=== PATIENT | female | born 1965 | race Caucasian/White ===

== ENCOUNTER → 2018-05-22 | Outpatient (CLI) | payer OTHER ==
[~2018-05-22] MED LIST: AMBEREN; ASACOL HD800 MG PO; ASACOL400 MG; BENTYL20 MG; CALCIUM; CALCIUM 600 +1 EAC5 PO; CARAFATE 1 GM TA1 G1; DIFLUCAN; MULTIVITAMINS PO; PHENERGAN25 M2; PROTONIX40 M2; VANCOCIN 125 M125 MG; VITAMIN D1000 UNI1 PO; VITAMIN D400 UNI1; ZOFRAN ODT4 MG PO
== END ==
LOC: M.ULTRA 14:06
DX: R10.9 Unspecified abdominal pain (principal); Z88.0 Allergy status to penicillin

== ENCOUNTER → 2020-07-24 | Outpatient (CLI) | payer OTHER | LOC: M.RAD 07:27 | PROVIDERS: ATTEND Nurse Practitioner Family | DX: Z12.31 Encounter for screening mammogram for malignant neoplasm of breast (principal) ==

== ENCOUNTER 2021-02-25 18:28 | Inpatient (IN) | payer OTHER ==
[~2021-02-25] VITALS: Ht 167.6 cm; Wt 98.4 kg
--- NOTE | ~2021-02-25 | CON ---
[address] [address] CONSULTATION Name: BALDERASRAY S Room: [address] IN .R.#: [id number] Admission: 02/25/21 Attend Phys: John Diehl MD Discharge: Date of : 61 Report #: [id number] THIS REPORT FOR: cc: Emily Jimenes RN, Janene RN FNP Liston, Michael J. MD [facility] ~ DOC #: [id number] cc: GARETH Quan MD DATE OF CONSULTATION: 02/26/2021 CARDIOLOGY CONSULTATION INDICATION: Chest pain and non-ST elevation myocardial infarction. HISTORY OF PRESENT ILLNESS: The patient is a very pleasant 55-year-old white female with no prior cardiac history. Cardiac risk factors include family history of coronary artery disease. The patient states that yesterday at approximately 5:30 p.m., she had an episode of dizziness, lightheadedness, some visual changes and ultimately shortness of breath and sternal chest discomfort radiating to both elbows. She called EMS and was brought to the hospital for further evaluation. She was given sublingual nitroglycerin, nitro paste and aspirin as well as morphine, ultimately with pain relief. Her troponin on arrival was 3.94 consistent with non-ST elevation myocardial infarction. EKG showed sinus rhythm without acute ST segment elevation. The patient was placed on a heparin drip. She reports having some symptoms last Tuesday that were transient in nature. She is without other cardiac complaint at this time. Her discomfort was associated with some shortness of breath and diaphoresis, but no nausea. PAST MEDICAL HISTORY: 1. Ulcerative colitis. 2. Gastroesophageal reflux. 3. History of Clostridium difficile x 1. 4. Seizure disorder as a child. PAST SURGICAL HISTORY: Hysterectomy. FAMILY HISTORY: The patient's father had bypass in his 50s. The patient's mother had atrial fibrillation. SOCIAL HISTORY: The patient is . She does not smoke. [place] [address] CONSULTATION Name: RAY BALDERAS Room: [address] IN [facility]#: [id number] Admission: 02/25/21 Attend Phys: John Diehl MD Discharge: Date of : 61 Report #: [id number] ALLERGIES: PENICILLIN, NEOSPORIN, SULFA, CLINDAMYCIN. HOME MEDICATIONS: Mesalamine, vitamin D3, multivitamin, calcium with D supplement, Pepcid and Prozac. REVIEW OF SYSTEMS: A 14-point review of systems positive for seizures as a 11-year-old, cough productive of sputum a few weeks ago secondary to allergies, palpitations, chest discomfort and shortness of breath as outlined above. She had some near syncope with her onset of chest pain yesterday. She reports blood in her stool from her ulcerative colitis. She had jaundice as an infant. She had anemia as a teenager. She reports colon polyps without history of cancer. She reports seasonal allergies and medical allergies as outlined above. She is allergic to adhesives. She denies contrast allergy. She has some anxiety, but no depression. She reports arthritis in her hands. She reports that she wears glasses without acute visual change. Otherwise, 14-point review of systems was unremarkable. PHYSICAL EXAMINATION: VITAL SIGNS: Stable. Blood pressure 106/62, pulse is 85 and regular. GENERAL: This is a pleasant lady in no distress. Mood and affect appropriate. HEENT: Extraocular muscles intact. Mucous membranes are moist. NECK: Examination of the neck shows no jugular venous distention. No carotid bruits. CHEST: Examination of the chest reveals clear lung reddy without wheezes, rales or rhonchi. CARDIOVASCULAR: Reveals a regular rhythm. Normal S1 and S2. I do not appreciate gallop or murmur. ABDOMEN: Examination of the abdomen reveals normal bowel sounds. The abdomen is soft and nontender. EXTREMITIES: Examination of the extremities shows no edema. Peripheral pulses are 2+ and easily palpable. SKIN: Dry. IMAGING: A 12-lead EKG shows sinus rhythm with low voltage anteriorly without acute ST segment abnormality. LABORATORY DATA: Reviewed. Electrolytes within normal limits. BUN 14, creatinine 0.9, serum glucose 103. Troponin on arrival 3.94. NT-proBNP 2583, white blood cell count 9.7, hemoglobin 13.0, platelet count 282,000. IMPRESSION AND RECOMMENDATION: 1. Non-ST elevation myocardial infarction. The patient has been placed on a heparin drip. We will proceed with coronary angiography. Further intervention pending the results of that study. Further medication adjustments pending [address] [place] [address] CONSULTATION Name: RAY BALDERAS Room: [address] IN M.R.#: [id number] Admission: 02/25/21 Attend Phys: John Diehl MD Discharge: Date of : 61 Report #: [id number] results of angiography. 2. Acute heart failure with elevated NT-proBNP. Likely diastolic in nature. Presently stable. We will treat underlying causes including ischemia. No need for diuresis at this time. 3. Possible dyslipidemia. Fasting lipid profile is pending. 4. Family history of coronary artery disease as outlined above. 5. Ulcerative colitis, presently stable. MD KAYODE FigueroaL/MAX By: 0854 09Jose Armando Joyner MD, [facility] /nt
[2021-02-25 18:28] VITALS: BP 126/82
[~2021-02-25 18:28] MED LIST changes: -ASACOL HD800 MG PO; +CALCIUM 600 +1 EA14 PO; -CALCIUM 600 +1 EAC5 PO; +DAILY VITE1 EACH PO; +LIALDA1.2 GM PO; -MULTIVITAMINS PO; -VITAMIN D1000 UNI1 PO; +VITAMIN D325 MC1 PO
[2021-02-25] MEDS ORDERED: PROZAC20 M1 PO (18:35)
[2021-02-25] MEDS ORDERED: FAMOTIDINE 10 M10 MG PO (18:35)
[2021-02-25 18:49] LABS: HEMATOCRIT 38.8 % (37.0-47.0); MCH 30.2 pg (26.0-34.0); MCHC 33.4 g/dL (28.0-37.0); MCV 90.5 fL (80.0-100.0); MPV 8.4 fl. (7.2-11.1); NUCLEATED RBCS 0 /100WBC; PLATELET COUNT* 282 thou/uL (150-400); RBC 4.29 mil/uL (4.20-5.00); RDW-CV 14.2 % (10.5-14.5); WBC 9.7 thou/uL (4.0-11.0)
[2021-02-25 18:55] LABS: CALCIUM 9.4 mg/dL (8.5-10.1); CREATININE 0.9 mg/dL (0.6-1.3); POTASSIUM 3.6 mmol/L (3.5-5.1)
[2021-02-25 19:09] LABS: APTT 25.4 Seconds (25.0-31.3); PROTIME 10.4 Seconds (9.20-11.50)
[2021-02-25 19:10] LABS: ALBUMIN 3.6 g/dL (3.4-5.0); MAGNESIUM 2.2 mg/dL (1.8-2.4); TOTAL BILIRUBIN 0.3 mg/dL (<0.1-1.0); TOTAL PROTEIN 8.6 g/dL (6.4-8.2)
[2021-02-25 19:23] LABS: ABSOLUTE EOSINOPHILS 2.3 thou/uL (0.0-0.7); ABSOLUTE LYMPHOCYTES 2.5 thou/uL (0.8-5.3); ABSOLUTE MONOCYTES 0.9 thou/uL (0.0-1.2); ATYPICAL LYMPHS 2 %
[2021-02-25 19:24] LABS: PLATELET ESTIMATE ADEQUATE
[2021-02-25 21:31] VITALS: BP 125/83
[2021-02-26] VITALS (14 sets, daily range): BP systolic 86–114; BP diastolic 51–78
--- NOTE | 2021-02-26 06:39 | NUR ---
NO ACUTE CHANGES THROUGHOUT SHIFT. SEE CHARTING FOR DETAILS. ALL ROUNDINGS COMPLETED, ALL NEEDS MET. BED LOCKED AND IN LOW POSITION. CALL LIGHT AND PERSONAL ITEMS IN REACH. PT REPORTED CHEST PRESSURE AT APPROX 0030, MORPHINE AND ZOFRAN GIVEN PER ONE TIME ORDER IN EMAR. AT APPROX 0400 PT AGAIN REPORTED CHEST PRESSURE. TELEPHONE STERILIZER PHYSICIAN NOTIFIED, NO NEW ORDERS RECEIVED, NO CALL RECEIVED. MESSAGE RESPONSE READ: "I'VE GOT YOUR MESSAGE. THANK YOU." PT CONTINUES TO REPORT CHEST PRESSURE, REASSURANCE GIVEN AND REPORT GIVEN TO DAY NURSE TO FOLLOW UP WITH PHYSICIAN.
[2021-02-26 10:28] LABS: CHOLESTEROL 128 mg/dL (<200); HDL CHOLESTEROL 59 mg/dL (>40); LDL CHOLESTEROL 59 mg/dL (<100); SERUM ASSESSMENT Clear; TC:HDL 2.2 Ratio (Not establshd); TRIGLYCERIDE 54 mg/dL (<150); VLDL 11 mg/dL (<40)
--- NOTE | 2021-02-26 10:59 | EKG ---
[place] [address] ELECTROCARDIOGRAM REPORT Name: RAY BALDERAS Room: [address] IN .#: [id number] Admission: 02/25/21 Attend Phys: John Diehl, Discharge: Date of : 61 Date of Service: 02/25/21 183 Report #: [id number] THIS REPORT FOR: //name// [facility] ED Test Date: 2021-02-25 Test Time: 18:31:20 Pat Name: RAY BALDERAS Department: Room: [facility] Gender: F [employer]aming Mill Supervisor: IDANIA : 1965 Requested By: Berta Hudson Order Number: [id number] MD: Morris Teixeira Measurements Intervals [place] Rate: 98 P: 39 FL: 165 QRS: -10 QRSD: 73 T: 6 QT: 328 QTc: 419 Interpretive Statements Sinus tachycardia Multiple ventricular premature complexes Probable left atrial enlargement Low voltage, precordial leads Borderline T abnormalities, inferior leads Compared to ECG 09/18/2011 22:42:38 Ventricular premature complex(es) now present Low QRS voltage now present Sinus rhythm no longer present Electronically Signed On 02-26-2021 10:59:19 CDT by Morris Teixeira [email or web address] <ELECTRONICALLY SIGNED> By: Morris Teixeira MD, [facility] 02/26/21 1059 30 30 Morris Teixeira MD, [facility] /EPI
--- NOTE | 2021-02-26 11:00 | EKG ---
[place] [address] ELECTROCARDIOGRAM REPORT Name: RAY BALDERAS Room: [address] IN [facility]#: [id number] Admission: 02/25/21 Attend Phys: John Diehl, Discharge: Date of : 61 Date of Service: 02/25/211940 Report #: [id number] THIS REPORT FOR: //name// [facility] ED Test Date: 2021-02-25 Test Time: 19:41:36 Pat Name: RAY BALDERAS Department: Room: [facility] Gender: F Commodity Manager: [place] : 1965 Requested By: Monty Workman Order Number: [id number] MD: Morris Teixeira Measurements Intervals [place] Rate: 83 P: 25 [place]: 153 QRS: -15 QRSD: 72 T: -3 QT: 367 QTc: 432 Interpretive Statements Sinus rhythm Probable left atrial enlargement Borderline left axis deviation Low voltage, precordial leads Consider anterior infarct Electronically Signed On 02-26-2021 11:00:27 CDT by Morris Teixeira [email or web address] <ELECTRONICALLY SIGNED> By: Morris Teixeira MD, FACC 02/26/21 1100 40 40 Morris Teixeira MD, FAC /EPI
--- NOTE | 2021-02-26 13:32 | NUR ---
Pt is A&O. Resides at home alone. Independent. No DME. No hx of HH or SNF. Goal is home at dc. No needs anticipated. Pt having heart cath today. Anticipate dc in 1-2 days.
--- NOTE | 2021-02-26 13:40 | CARD ---
[address] [address] CARDIAC CATH REPORT Name: RAY BALDERAS Room: [address] IN [facility]#: [id number] Admission: 02/25/21 Attend Phys: John Diehl MD Discharge: Date of : 61 Report #: [id number] THIS REPORT FOR: cc: Emily Jimenes RN, Janene RN FNP Liston, Michael J. MD [facility] ~ APPROVED REPORT Study performed: 02/26/2021 11:30:54 Patient Details Patient Status: In-Patient Room #: The patient is a 55 year-old female Event Personnel Jose Armando Joyner Extruding Machine Operator, Curtis Rojas RN Billing Department Supervisor, Cuong Berry STORE PROTECTION SPECIALIST Monitor, Heidi Flores RTR Scrub Procedures Performed Art Access - R femoral artery* Left Heart Cath w/or w/o Coronaries [id number] [facility] Hemostasis w/ Mynx Indication Non-STEMI (>12 hrs to = 24 hrs) Risk Factors Family History Procedure Narrative The patient was brought electively to the Cardiac Catheterization Laboratory and was prepped and draped in a sterile manner. The right femoral was infiltrated with 2% Lidocaine subcutaneous anesthesia. A 6F sheath was inserted into the right femoral artery. Coronary angiography was performed using coronary diagnostic catheters. The right coronary system was accessed and visualized with a JR4 catheter. The left coronary system was accessed and visualized with a JL4 catheter. The left ventricle was accessed and visualized with a PIG tail catheter. Hemostasis was obtained with manual pressure following sheath removal without any complications. The patient tolerated the procedure well and there were no complications associated with the procedure. There was no hematoma. Intraoperative Conscious Sedation Sedation start time: 1148 Case end Time: [place] [address] CARDIAC CATH REPORT Name: BALDERASRAY S Room: [address] IN [facility]#: [id number] Admission: 02/25/21 Attend Phys: John Diehl MD Discharge: Date of : 61 Report #: [id number] Fentanyl 25 mcg Versed 1.0 mg Fluoro Time: 1.5 minutes Dose: DAP 26073 cGycm2 81341 75047 mGy Contrast Type and Amount: Visipaque 150 ml Coronary Angiography The patient's coronary anatomy is left dominant. Diagnostic Cath Left Main The left main coronary artery is normal and bifurcates into a left anterior descending and circumflex coronary artery. LAD The left anterior descending coronary artery is normal in its proximal mid and distal portion. The distal portion of the LAD wraps around the apex. Diagonal 1 A large branch first diagonal branch is normal. Circumflex The circumflex coronary artery is normal in its proximal mid and distal portion. OM1 The first obtuse marginal branch is a large vessel that is normal. OM2 The second obtuse marginal branch is a small vessel that is normal. OM3 The third obtuse marginal branch is a small vessel that is normal. L PDA A large left PDA is normal. L NEO A moderate-sized left posterior lateral LV branch is normal. Right Coronary The right coronary artery is a small vessel that is nondominant and normal in its proximal mid and distal portion. Left Ventriculography The left ventricle is normal in size with Mildly reduced contractility. The left ventricular ejection fraction is estimated to be 40-45%. There is global hypokinesis without focal wall motion abnormality. Hemodynamics The aortic pressure is 119/72 mmHg with a mean of 90 mmHg. The left ventricular pressure is 117/10 mmHg with a mean of mmHg. The left ventricular end diastolic pressure is 30 mmHg. Conclusion 1. [place] [address] CARDIAC CATH REPORT Name: RAY BALDERAS Room: [address] IN .R.#: [id number] Admission: 02/25/21 Attend Phys: John Diehl MD Discharge: Date of : 61 Report #: [id number] 2. Mild global left ventricular systolic dysfunction 3. Elevated left ventricular end-diastolic pressure measured to be 30 mmHg. Recommendations CABG 1. Continue medical management <ELECTRONICALLY SIGNED> By: Jose Armando Joyner MD, [facility] 02/26/21 1339 1339 Deep Joyner MD, FACC /INF
--- NOTE | 2021-02-26 15:22 | 2DMMODE ---
[place] [address] 2 D/M-MODE ECHOCARDIOGRAM Name: RAY BALDERAS Room: [address] IN [facility]#: [id number] Admission: 02/25/21 Attend Phys: John Diehl, Discharge: Date of : 61 Date of Service: 02/26/21 1521 Report #: [id number] THIS REPORT FOR: cc: Emily Jimenes RN, Janene RN FNP Liston, Michael J. MD [facility] ~ APPROVED REPORT Study performed: 02/26/2021 13:36:22 EXAM: Comprehensive 2D, Doppler, and color-flow Echocardiogram Patient Location: In-Patient Room #: [facility] Status: routine BSA: 2.07 HR: 80 bpm BP: 106/62 mmHg Rhythm: NSR Other Information Study Quality: Good Indications Non STEMI 2D Dimensions IVSd: 11.49 (7-11mm) LVOT Diam: 20.68 (18-24mm) LVDd: 48.63 mm PWd: 9.97 (7-11mm) Ascending Ao: 30.79 (22-36mm) LVDs: 37.69 (25-40mm) Aortic Root: 29.43 mm Volumes Left Atrial Volume (Systole) LA ESV Index: 25.30 mL/m2 Aortic Valve AoV Peak Magnus.: 1.48 m/s AO Peak Gr.: 8.72 mmHg LVOT Max P.64 mmHg AO Mean Gr.: 5.06 mmHg LVOT Mean P.02 mmHg LVOT Max V: 0.95 m/s AO V2 VTI: 30.18 cm LVOT Mean V: 0.66 m/s GIGI (VTI): 2.27 cm2 LVOT V1 VTI: 20.40 [place] [address] 2 D/M-MODE ECHOCARDIOGRAM Name: RAY BALDERAS Room: [address] IN [facility].#: [id number] Admission: 02/25/21 Attend Phys: John Diehl, Discharge: Date of : 61 Date of Service: 02/26/21 1521 Report #: [id number] Mitral Valve E/A Ratio: 1.02 MV Decel. Time: 200.98 ms MV E Max Magnus.: 0.92 m/s MV PHT: 58.28 ms MVA (PHT): 3.77 cm2 TDI E/Lateral E': 5.11 E/Medial E': 5.11 Medial E' Magnus.: 0.18 m/s Lateral E' Magnus.: 0.18 m/s Pulmonary Valve PV Peak Magnus.: 1.01 m/s PV Peak Gr.: 4.09 mmHg Tricuspid Valve RAP Estimate: 5.00 mmHg TR Peak Gr.: 18.57 mmHg RVSP: 23.00 mmHg PA Pressure: 23.00 mmHg Left Ventricle The left ventricle is normal size. There is normal LV segmental wall motion. There is normal left ventricular wall thickness. Left ventricular systolic function is normal. LVEF is 55-60%. The left ventricular diastolic function is normal. Right Ventricle The right ventricle is normal size. The right ventricular systolic function is normal. Atria The left atrium size is normal. The right atrium size is normal. Aortic Valve The aortic valve is normal in structure. No aortic regurgitation is present. There is no aortic valvular stenosis. Mitral Valve The mitral valve is normal in structure. Mild mitral regurgitation. No evidence of mitral valve stenosis. Tricuspid Valve The tricuspid valve is normal in structure. Mild tricuspid regurgitation. [place] [address] 2 D/M-MODE ECHOCARDIOGRAM Name: RAY BALDERAS Room: [address]#: [id number] Admission: 02/25/21 Attend Phys: John Diehl, Discharge: Date of : 61 Date of Service: 02/26/21 1521 Report #: [id number] Pulmonic Valve The pulmonary valve is normal in structure. There is no pulmonic valvular regurgitation. Great Vessels The aortic root is normal in size. IVC is normal in size and collapses >50% with inspiration. Pericardium There is no pericardial effusion. <Conclusion> The left ventricle is normal size. There is normal left ventricular wall thickness. Left ventricular systolic function is normal. LVEF is 55-60%. The left ventricular diastolic function is normal. Mild mitral regurgitation. Mild tricuspid regurgitation. No pulmonary hypertension. IVC is normal in size and collapses >50% with inspiration. <ELECTRONICALLY SIGNED> By: Jose Armando Joyner MD, FACC 02/26/21 1521 152 152 Jose Armando Joyner MD, FACC /INF
--- NOTE | 2021-02-26 18:40 | NUR ---
Pt had angiogram today. VSS. Reports nausea when first got up after bedrest complete. Chest pain/pressure improved from this am; states 12/10 now. Rt groin stable, but c/o pain with activity. Pleasant and cooperative. Will continue to monitor.
--- NOTE | 2021-02-26 20:00 | NUR ---
RECEIVED REPORT AND ASSUMED CARE OF PT, ASSESSMENT COMPLETED. RT GROIN VERY TENDER TO TOUCH, PT FLENCHING WHEN TOUCHED, DRSG DRY AND INTACT, NO REDNESS EDEMA OR HEMATOMA NOTED. TELEMETRY ON SHOWING SR. WILL CONT TO MONITOR AND ASSIST NEEDED. ENCOURAGED PT TO CHECK GROIN SITE AFTER ANY AMBULATION.
[2021-02-27 03:56] VITALS: BP 87/56
[2021-02-27 04:17] LABS: HEMATOCRIT 32.8 % (37.0-47.0); MCH 29.9 pg (26.0-34.0); MCV 90.4 fL (80.0-100.0); MPV 8.4 fl. (7.2-11.1); RBC 3.63 mil/uL (4.20-5.00); RDW-CV 13.9 % (10.5-14.5); WBC 8.5 thou/uL (4.0-11.0)
[2021-02-27 04:28] LABS: CALCIUM 9.1 mg/dL (8.5-10.1); CREATININE 0.9 mg/dL (0.6-1.3); POTASSIUM 4.3 mmol/L (3.5-5.1)
[2021-02-27 04:55] LABS: HEMOGLOBIN 10.8 gm/dL (12.0-15.0)
--- NOTE | 2021-02-27 06:58 | NUR ---
SLEPT WELL TONIGHT. GAIT STEADY TO AND FROM BR INDEPENDENTLY. RT GROIN REMAINS WITHOUT HEMATOMA, REDNESS OR DRAINAGE. TELEMETRY CONT TO SHOW SR. PO PAIN MED GIVEN X1 AND EFFECTIVE FOR GROIN SORENESS. HS GOALS OF REST AND SAFETY ACHIEVED. HOURLY ROUNDING OBSERVED.
[2021-02-27 07:43] VITALS: BP 108/69
[2021-02-27] MEDS ORDERED: LIPITOR 40 MG T40 M1 PO (10:30)
[2021-02-27] MEDS ORDERED: PREDNISONE 10 M10 MG PO (10:30)
[2021-02-27 10:51] VITALS: BP 108/69
[2021-02-27 11:20] VITALS: BP 104/59
[2021-02-27 11:47] VITALS: BP 104/59
[2021-02-27] MEDS ORDERED: NITROSTAT0.4 MG SUBLING (11:57)
[2021-02-27 15:45] VITALS: BP 113/66
--- NOTE | 2021-02-27 18:29 | NUR ---
Reviewed discharge teaching with patient; verbalized understanding. Atorvastatin discontinued per Dr. Joyner. Pt finishing her supper, and then will discharge per WC with sister. IVs and earth science laboratory technician discontinued.
== END 2021-02-27 18:40 | disposition home or self-care (01) | DRG 280 ==
LOC: M.ERS 18:28 → M.2W 20:00 → M.TBA-ER 20:00 → M.2W 21:41
PROVIDERS: Family Medicine; Internal Medicine; Internal Medicine Cardiovascular Disease; ADMIT Internal Medicine; ATTEND Internal Medicine
PROC: B211YZZ Fluoroscopy of Multiple Coronary Arteries using Other Contrast (ICD-10-PCS; principal; 2021-02-26)
PROC: B215YZZ Fluoroscopy of Left Heart using Other Contrast (ICD-10-PCS; principal; 2021-02-26)
PROC: 4A023N7 Measurement of Cardiac Sampling and Pressure, Left Heart, Percutaneous Approach (ICD-10-PCS; principal; 2021-02-26)
DX: I21.4 Non-ST elevation (NSTEMI) myocardial infarction (principal); J96.01 Acute respiratory failure with hypoxia; I50.41 Acute combined systolic (congestive) and diastolic (congestive) heart failure; K51.90 Ulcerative colitis, unspecified, without complications; J98.11 Atelectasis; Z20.822 Contact with and (suspected) exposure to COVID-19; I25.10 Atherosclerotic heart disease of native coronary artery without angina pectoris; K21.9 Gastro-esophageal reflux disease without esophagitis; G40.909 Epilepsy, unspecified, not intractable, without status epilepticus; Z90.710 Acquired absence of both cervix and uterus; Z79.899 Other long term (current) drug therapy; Z91.048 Other nonmedicinal substance allergy status; Z88.1 Allergy status to other antibiotic agents; Z88.8 Allergy status to other drugs, medicaments and biological substances; Z88.0 Allergy status to penicillin; Z82.49 Family history of ischemic heart disease and other diseases of the circulatory system

== ENCOUNTER → 2021-03-26 | Outpatient (CLI) | payer OTHER ==
[~2021-03-26] MED LIST changes: +FAMOTIDINE 10 M10 MG PO; +LIPITOR 40 MG T40 M1 PO; +NITROSTAT0.4 MG SUBLING; +PREDNISONE 10 M10 MG PO; +PROZAC20 M1 PO
== END ==
LOC: M.RAD 15:35
PROVIDERS: ATTEND Nurse Practitioner Family
DX: M47.817 Spondylosis without myelopathy or radiculopathy, lumbosacral region (principal); M43.16 Spondylolisthesis, lumbar region; M48.07 Spinal stenosis, lumbosacral region; M43.8X6 Other specified deforming dorsopathies, lumbar region; M41.86 Other forms of scoliosis, lumbar region

== ENCOUNTER → 2021-08-10 | Outpatient (CLI) | payer OTHER ==
--- NOTE | 2021-08-10 11:34 | 2DMMODE ---
[place] [address] 2 D/M-MODE ECHOCARDIOGRAM Name: MARKEL BALDERASKendy Cleaning Room: [facility]#: [id number] Admission: 08/10/21 Attend Phys: Selena Yoder, Discharge: Date of : 61 Date of Service: 08/10/21 1134 Report #: [id number] THIS REPORT FOR: cc: Emily Jimenes RN, Janene RN FNP Blick, David R. MD [facility] ~ APPROVED REPORT Study performed: 08/10/2021 09:06:44 EXAM: Comprehensive 2D, Doppler, and color-flow Echocardiogram Patient Location: Out-Patient BSA: 2.07 HR: 57 bpm BP: 128/84 mmHg Other Information Study Quality: Good Indications Chest Pain 2D Dimensions IVSd: 8.75 (7-11mm) LVOT Diam: 20.53 (18-24mm) LVDd: 49.87 mm PWd: 9.26 (7-11mm) Ascending Ao: 30.48 (22-36mm) LVDs: 34.65 (25-40mm) Aortic Root: 29.11 mm Volumes Left Atrial Volume (Systole) LA ESV Index: 19.60 mL/m2 Aortic Valve AoV Peak Magnus.: 1.36 m/s AO Peak Gr.: 7.36 mmHg LVOT Max P.72 mmHg AO Mean Gr.: 3.91 mmHg LVOT Mean P.81 mmHg LVOT Max V: 0.96 m/s AO V2 VTI: 29.02 cm LVOT Mean V: 0.62 m/s GIGI (VTI): 2.61 cm2 LVOT V1 VTI: 22.86 cm Mitral Valve E/A Ratio: 1.24 [place] [address] 2 D/M-MODE ECHOCARDIOGRAM Name: RAY BALDERAS Room: [facility]#: [id number] Admission: 08/10/21 Attend Phys: Selena Yoder, Discharge: Date of : 61 Date of Service: 08/10/21 1134 Report #: [id number] MV Decel. Time: 176.12 ms MV E Max Magnus.: 0.94 m/s MV PHT: 51.07 ms MVA (PHT): 4.31 cm2 TDI E/Lateral E': 5.88 E/Medial E': 6.27 Medial E' Magnus.: 0.15 m/s Lateral E' Magnus.: 0.16 m/s Pulmonary Valve PV Peak Magnus.: 0.79 m/s PV Peak Gr.: 2.51 mmHg Tricuspid Valve RAP Estimate: 5.00 mmHg TR Peak Gr.: 14.98 mmHg RVSP: 19.98 mmHg PA Pressure: 19.98 mmHg Left Ventricle The left ventricle is normal size. There is normal LV segmental wall motion. There is normal left ventricular wall thickness. Left ventricular systolic function is normal. The left ventricular ejection fraction is within the normal range. LVEF is 55-60%. The left ventricular diastolic function is normal. Right Ventricle The right ventricle is normal size. The right ventricular systolic function is normal. Atria The left atrium size is normal. The right atrium size is normal. Aortic Valve The aortic valve is normal in structure. No aortic regurgitation is present. There is no aortic valvular stenosis. Mitral Valve The mitral valve is normal in structure. Mild mitral regurgitation. No evidence of mitral valve stenosis. Tricuspid Valve The tricuspid valve is normal in structure. Trace to mild tricuspid regurgitation[place] [address] 2 D/M-MODE ECHOCARDIOGRAM Name: RAY BALDERAS Room: [facility]#: [id number] Admission: 08/10/21 Attend Phys: Selena Yoder, Discharge: Date of : 61 Date of Service: 08/10/21 1134 Report #: [id number] The pulmonary valve is normal in structure. There is no pulmonic valvular regurgitation. Great Vessels The aortic root is normal in size. IVC is normal in size and collapses >50% with inspiration. Pericardium There is no pericardial effusion. <Conclusion> Left ventricular systolic function is normal. The left ventricular ejection fraction is within the normal range. <ELECTRONICALLY SIGNED> By: Morris Teixeira MD, FACC 08/10/21 1134 1134 1134 Morris Teixeira MD, FACC /INF
== END ==
LOC: M.CRD 08:17
PROVIDERS: ATTEND Nurse Practitioner
DX: I08.1 Rheumatic disorders of both mitral and tricuspid valves (principal)

== ENCOUNTER → 2021-10-13 | Outpatient (CLI) | payer OTHER | LOC: M.CT 10-06 14:21 | PROVIDERS: ATTEND Internal Medicine Critical Care Medicine | DX: J98.11 Atelectasis (principal); J47.9 Bronchiectasis, uncomplicated; J84.10 Pulmonary fibrosis, unspecified; R91.8 Other nonspecific abnormal finding of lung field ==

== ENCOUNTER → 2021-11-27 | Outpatient (CLI) | payer OTHER ==
--- NOTE | 2021-12-31 14:28 | SLEEP ---
[address] [address] SLEEP STUDY REPORT Name: RAY BALDERAS Room: [facility]#: [id number] Admission: 11/27/21 Attend Phys: Duane Monzon MD Discharge: Date of : 61 Report #: [id number] THIS REPORT FOR: cc: Robert Bui Russell J. DO Pervez, Adeel MD ~ DATE OF STUDY: 11/27/2021 INDICATION FOR SLEEP STUDY: Previous history of obstructive sleep apnea diagnosed on a sleep study more than 10 years ago with a history of witnessed apneas while asleep and significant daytime sleepiness. INTERPRETATION: Total duration of the study is 454 minutes, out of which she was asleep for 229 minutes with an overall sleep efficiency decreased to 50.4%. Sleep onset initially occurred at 11:17 p.m. The patient was in bed at 10:25 p.m. and therefore was delayed. N1 sleep duration is 18%, N2 duration is 51%, N3 duration is 13%, REM duration is 18%. REM sleep occurred 286 minutes after sleep onset. We recorded multiple sleep related respiratory events. These included 26 obstructive apneas in addition to 1 central apnea, 77 hypopneas and 9 respiratory effort-related arousals. Overall, apnea-hypopnea index is 27.3. Body position data indicates the patient was observed asleep in the supine position for 15.1 minutes, the rest of the time the patient was in other positions. Mean heart rate was 70. Periodic limb movement index is normal at 0.8. Overall, arousal index is mildly elevated to 13.7. There are multiple desaturations recorded. O2 saturation, however, mostly remains at or above 90%. The patient's O2 saturation was below 90% for 2.4 minutes during the sleep study. Due to significant reduction in sleep efficiency, the patient did not have a split night study performed. IMPRESSION: Obstructive sleep apnea with an apnea-hypopnea index of 27.3. There is no obvious positional variation; however, supine sleep duration is 15 minutes. RECOMMENDATIONS: Recommend proceeding to a repeat sleep study for positive airway pressure titration. [place] [address] SLEEP STUDY REPORT Name: MARKEL BALDERASI GISEL Room: [facility]#: [id number] Admission: 11/27/21 Attend Phys: Duane Monzon MD Discharge: Date of : 61 Report #: [id number] His entire sleep study was reviewed by board certified sleep physician. <ELECTRONICALLY SIGNED> By: Duane Monzon MD 12/31/21 1428 1803 1817Asamuel Monzon MD /nt
--- NOTE | 2021-12-31 14:28 | SLEEP ---
[address] [address] SLEEP STUDY REPORT Name: RAY BALDERAS Room: [facility]#: [id number] Admission: 11/27/21 Attend Phys: Duane Monzon MD Discharge: Date of : 61 Report #: [id number] THIS REPORT FOR: cc: Robert Bui Russell J. DO Pervez, Adeel MD ~ DATE OF STUDY: 11/27/2021 INDICATION FOR SLEEP STUDY: Previous history of obstructive sleep apnea diagnosed on a sleep study more than 10 years ago with a history of witnessed apneas while asleep and significant daytime sleepiness. INTERPRETATION: Total duration of the study is 454 minutes, out of which she was asleep for 229 minutes with an overall sleep efficiency decreased to 50.4%. Sleep onset initially occurred at 11:17 p.m. The patient was in bed at 10:25 p.m. and therefore was delayed. N1 sleep duration is 18%, N2 duration is 51%, N3 duration is 13%, REM duration is 18%. REM sleep occurred 286 minutes after sleep onset. We recorded multiple sleep related respiratory events. These included 26 obstructive apneas in addition to 1 central apnea, 77 hypopneas and 9 respiratory effort-related arousals. Overall, apnea-hypopnea index is 27.3. Body position data indicates the patient was observed asleep in the supine position for 15.1 minutes, the rest of the time the patient was in other positions. Mean heart rate was 70. Periodic limb movement index is normal at 0.8. Overall, arousal index is mildly elevated to 13.7. There are multiple desaturations recorded. O2 saturation, however, mostly remains at or above 90%. The patient's O2 saturation was below 90% for 2.4 minutes during the sleep study. Due to significant reduction in sleep efficiency, the patient did not have a split night study performed. IMPRESSION: Obstructive sleep apnea with an apnea-hypopnea index of 27.3. There is no obvious positional variation; however, supine sleep duration is 15 minutes. RECOMMENDATIONS: Recommend proceeding to a repeat sleep study for positive airway pressure titration[place] [address] SLEEP STUDY REPORT Name: MARKEL BALDERASI GISEL Room: [facility]#: [id number] Admission: 11/27/21 Attend Phys: Duane Monzon MD Discharge: Date of : 61 Report #: [id number] His entire sleep study was reviewed by board certified sleep physician. <ELECTRONICALLY SIGNED> By: Duane Monzon MD 12/31/21 1428 1803 [id number] Monzon MD /nt
== END ==
LOC: M.SLEEPLAB 19:59
PROVIDERS: ATTEND Internal Medicine Critical Care Medicine
DX: G47.33 Obstructive sleep apnea (adult) (pediatric) (principal)